=== PATIENT | female | born 1935 | race Caucasian/White ===

== ENCOUNTER 2020-09-29 04:39 | Day surgery (SDC) | payer OTHER, BC ==
[2020-09-28 15:47] VITALS: BMI 26.4
[2020-09-29 16:00] VITALS: BP 123/63; PULSE 68; TEMP 98.6
== END 2020-09-29 16:00 | disposition home or self-care (01) ==
LOC: JRADIR 04:39
PROVIDERS: ATTEND Internal Medicine Hematology & Oncology
PROC: 0BBJ3ZX Excision of Left Lower Lung Lobe, Percutaneous Approach, Diagnostic (ICD-10-PCS; principal; 2020-09-29)
DX: C34.32 Malignant neoplasm of lower lobe, left bronchus or lung (principal)
CPT/HCPCS: 32408; 71045-TC-FY; 77012-TC; 88305-TC; 88341-TC; 88342-TC